=== PATIENT | female | born 1980 | race Caucasian/White ===

== ENCOUNTER 2018-01-19 14:04 | Emergency (ER) | payer OTHER ==
[~2018-01-19] VITALS: Ht 170.2 cm; Wt 94.8 kg
[~2018-01-19 14:04] MED LIST: HYDR-971 PO
--- NOTE | 2018-01-19 14:25 | PHYS DOC ---
Past History Past Medical History: No Pertinent History Past Surgical History: , Tonsillectomy Alcohol Use: None Drug Use: None Adult General Chief Complaint Chief Complaint: BACK PAIN OR INJURY HPI HPI Patient is a 37 YO F WITH CHRONIC BACK PAIN JUST MOVED HERE FROM [place] DID A LOT OF MOVING AND LIFTING , HAD INCREASE IN LOWER BACK PAIN FEELS LIKE BAD B/L MUSCLE SPASM WORSENED BY SITTING IN CAR FOR THE LAST THREE DAYS NO B/B INCONTINENCE NO NEW NUMBNESS SHE HAS OLD PATCHES OF NUMBNESS ON BOTH FEET NO SADDLE ANESTHESIA PAIN RADIATES TO B/L THIGHS AND THEN STOPS ABRUPTLY SHE THINKS THAT IS FROM THE RFA SHE HAS HAD IN THE PAST 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 SHE HAS TRIED OXYCODONE AND FLEXERIL WITH MINIMAL RELIEF. Review of Systems Review of Systems NEG FOR FEVER NEG FOR DYSURIA NEG FOR TRAUMA NEG FOR ABDOMINA PAIN All other systems were reviewed and found to be within normal limits, except as documented in this note. Allergies Allergies Allergies Coded Allergies Type Severity Reaction Last Updated Verified Sulfa (Sulfonamide Antibiotics) Allergy Unknown 01/27/15 No Physical Exam Physical Exam Constitutional: Well developed, well nourished,MILD DISTRESS HENT: Normocephalic, atraumatic, bilateral external ears normal, oropharynx moist, no oral exudates, nose normal. [] Eyes: PERRLA, EOMI, conjunctiva normal, no discharge. [] Neck: Normal range of motion, no tenderness, supple, no stridor. [] NORMAL RESPIRATORY EFFORT NO INCREASED WORK OF BREATHING. Abdomen: Bowel sounds normal, soft, no tenderness, no masses, no pulsatile masses. [] Skin: Warm, dry, no erythema, no rash. [] Back: THERE IS PPALPABLE SPASM RIGHT GREATER THAN ELFT PARASPINOUS Extremities: No tenderness, no cyanosis, no clubbing, ROM intact, no edema. [] Neurologic: Alert and oriented X 3, normal motor function, normal sensory function, no focal deficits noted. [] EXCEPT FOR PATCHY NUMBNES OF FEET AND SHINS WHICH SHE SAYS IS OLD. NO FOOT DROP. Psychologic: Affect normal, judgement normal, mood normal. [] EKG EKG [] Radiology/Procedures Radiology/Procedures [] Course & Med Decision Making Course & Med Decision Making Pertinent Labs and Imaging studies reviewed. (See chart for details) []PROCEDURE NOTE TRIGGER POINT INJECTION VERBAL CONSENT AREA PREPPED WITH ALCOHOL LIDOCAINE 2% INJECTED SUBQ IN AREAS OF MAXIMAL TENDERNESS BOTH RIGHT AND LEFT PARASPINOUS. FOLLOWING PROCEDURE PT NOTED SOME MILD IMPROVEMENT MORE ON THE RIGHT WHERE THE SPASM WAS MORE FOCAL PT is 37-year-old female with history of chronic back pain who is presenting with acute flare I suspect mostly muscle spasm and she agrees trigger point injection was performed as noted above and up her prescription for lidocaine patches as well as Valium just to help her sleep for the next couple of days was given. Return precautions were advised AND SHE HAS F/U FOR MASSAGE AND CHIROPRACTIC THERAPY WHICH HAS HELPED HER BEFORE NO SIGNS OF CAUDA EQUINA BY HX OR PE. Dragon Disclaimer Dragon Disclaimer This electronic medical record was generated, in whole or in part, using a voice recognition dictation system. Departure Departure: Impression: Primary Impression: Back pain Disposition: 01 HOME, SELF-CARE Condition: STABLE Referrals: MELANY TA (PCP) Scripts Diazepam (VALIUM) 5 Mg Tablet 5 MG PO BID, #20 TAB Prov: CÉSAR CONNELL MD 01/19/18 Lidocaine (Lidocaine) 1 Each Adh..patch 1 EACH TP BID, #10 PATCH Prov: CÉSAR CONNELL MD 01/19/18 CÉSAR CONNELL MD Jan 19, 2018 14:25
[2018-01-19] MEDS ORDERED: KETOROLAC 60 MG/2 ML VIAL. IM ONE (14:45)
[2018-01-19] MEDS ORDERED: LIDOCAINE 2% 20 ML VIAL. IJ ONE (14:45)
[2018-01-19] MEDS ORDERED: KETOROLAC 30 MG/ML VIAL. ONE (14:46)
[2018-01-19] MEDS ORDERED: LIDO700A39 TP (14:48)
[2018-01-19] MEDS ORDERED: DIAZ5TAB PO (14:49)
[2018-01-19 15:28] VITALS: BP 108/70
== END 2018-01-19 15:28 | disposition home or self-care (01) ==
LOC: ER 14:04
DX: M54.5 Low back pain (principal); G89.29 Other chronic pain; M79.1 Myalgia; Z88.2 Allergy status to sulfonamides
CPT/HCPCS: 20552; 81025; 96372; 99284; J1885; J2001

== ENCOUNTER → 2018-04-16 | Outpatient (CLI) | payer OTHER ==
[~2018-04-16] MED LIST changes: +DIAZ5TAB PO; +KETOROLAC 30 MG/ML VIAL. IM ONE; +LIDO700A39 TP
== END | disposition home or self-care (01) ==
LOC: SURG 08:30
PROVIDERS: ATTEND Anesthesiology
DX: M47.26 Other spondylosis with radiculopathy, lumbar region (principal)
CPT/HCPCS: 99214; J1885

== ENCOUNTER → 2018-05-07 | Outpatient (CLI) | payer OTHER ==
[~2018-05-07] MED LIST changes: +0.9 % SODIUM CHLORIDE 10 ML VIAL ONE; +DEXAMETHASONE SOD PHOS 4 MG/ML VIAL ONE; +IOHEXOL 300 MG/ML 50 ML VIAL. ONE; -KETOROLAC 30 MG/ML VIAL. IM ONE; +LIDOCAINE 1% PF 2 ML VIAL. ONE
== END | disposition home or self-care (01) ==
LOC: SURG 09:10
PROVIDERS: ATTEND Anesthesiology
DX: M54.16 Radiculopathy, lumbar region (principal); Z88.2 Allergy status to sulfonamides; Z79.899 Other long term (current) drug therapy; Z98.890 Other specified postprocedural states
CPT/HCPCS: 62323; J1100; Q9967

== ENCOUNTER → 2018-05-28 | Outpatient (CLI) | payer OTHER ==
[~2018-05-28] MED LIST changes: -0.9 % SODIUM CHLORIDE 10 ML VIAL ONE; -DEXAMETHASONE SOD PHOS 4 MG/ML VIAL ONE; -IOHEXOL 300 MG/ML 50 ML VIAL. ONE; -LIDOCAINE 1% PF 2 ML VIAL. ONE
== END | disposition home or self-care (01) ==
LOC: SURG 09:58
PROVIDERS: ATTEND Anesthesiology
DX: M47.817 Spondylosis without myelopathy or radiculopathy, lumbosacral region (principal); Z88.1 Allergy status to other antibiotic agents
CPT/HCPCS: 99214

== ENCOUNTER 2019-04-22 08:54 | Emergency (ER) | payer OTHER ==
[~2019-04-22] VITALS: Ht 170.2 cm; Wt 93.1 kg
[2019-04-22 08:54] VITALS: BP 128/87
[~2019-04-22 08:54] MED LIST changes: +HYDR-3165 PO; -HYDR-971 PO; +LIDO700A21 TP; -LIDO700A39 TP
[2019-04-22] MEDS ORDERED: DEXAMETHASONE 4 MG TABLET PO ONE (10:45)
[2019-04-22] MEDS ORDERED: DEXAMETHASONE SOD PHOS 10 MG/ML VIAL PO ONE (10:45)
[2019-04-22] MEDS ORDERED: KETOROLAC 60 MG/2 ML VIAL. IM ONE (10:45)
--- NOTE | 2019-04-22 10:59 | PHYS DOC ---
Past History Past Medical History: Hypertension, Other Past Surgical History: , Other Alcohol Use: None Drug Use: None Adult General Chief Complaint Chief Complaint: BACK PAIN OR INJURY HPI HPI 38-year-old female presents to the emergency Department with complaints of back pain. Patient initial back injury in 2009, she has degenerative disc changes at L5 and S1. She states she's developed muscle cramping and pain on without acute injury. She describes numbness and tingling down her left leg. She denies any bowel or bladder dysfunction. Patient declined rectal exam on evaluation. Review of Systems Review of Systems Constitutional: Denies fever or chills [] Respiratory: Denies cough or shortness of breath [] Cardiovascular: No additional information not addressed in HPI [] GI: Denies abdominal pain, nausea, vomiting, bloody stools or diarrhea [] : She denies any bowel or bladder dysfunction Musculoskeletal: Back pain, low with numbness tingling down her left leg Neurologic: Denies headache, focal weakness or sensory changes [] All other systems were reviewed and found to be within normal limits, except as documented in this note. Current Medications Current Medications Current Medications Medications (Trade) Dose Ordered Sig/[facility] Start Time Stop Time Status Last Admin Dose Admin Dexamethasone (Decadron) 10 mg 1X ONCE 04/22/19 10:45 04/22/19 10:46 DC 04/22/19 10:38 10 MG Dexamethasone Sodium Phosphate (Decadron) 10 mg 1X ONCE 04/22/19 10:45 04/22/19 10:28 DC Ketorolac Tromethamine (Toradol Im) 60 mg 1X ONCE 04/22/19 10:45 04/22/19 10:46 DC 04/22/19 10:38 60 MG Allergies Allergies Allergies Coded Allergies Type Severity Reaction Last Updated Verified Sulfa (Sulfonamide Antibiotics) Allergy Unknown 01/27/15 No Physical Exam Physical Exam Constitutional: Well developed, well nourished, mild distress secondary to pain, patient is tearful HENT: Normocephalic, atraumatic, bilateral external ears normal, oropharynx moist, no oral exudates, nose normal. [] Eyes: PERRLA, EOMI, conjunctiva normal, no discharge. [] Neck: Normal range of motion, no tenderness, supple, no stridor. [] Cardiovascular:Heart rate regular rhythm, no murmur [] Lungs & Thorax: Bilateral breath sounds clear to auscultation [] Abdomen: Bowel sounds normal, soft, no tenderness, no masses, no pulsatile masses. [] Skin: Warm, dry, no erythema, no rash. [] Back: Tender to palpation along the lumbar, sacral area, mild positive straight leg raise Extremities: No tenderness, no cyanosis, no clubbing, limited range of motion secondary to pain no edema. [] Neurologic: Alert and oriented X 3, normal motor function, normal sensory function, no focal deficits noted. [] Psychologic: Affect normal, judgement normal, mood normal. [] As of note, patient declined rectal exam Current Patient Data Vital Signs Vital Signs Date Time Temp Pulse Resp B/P (MAP) Pulse Ox O2 Delivery O2 Flow Rate FiO2 04/22/19 08:54 98.1 90 18 128/87 (101) 99 Room Air EKG EKG [] Radiology/Procedures Radiology/Procedures [address] [address] IMAGING REPORT Signed PATIENT: HOLLAND REID ACCOUNT: [id number] : 1980 LOCATION: ER AGE: 38 SEX: F EXAM STATUS: REG ER ORD. PHYSICIAN: DENZEL KIMBALL MD REASON: Back pain, worsening, radiation down left leg PROCEDURE: CT LUMBAR SPINE WO CONTRAST CT LUMBAR SPINE WO CONTRAST Indication: Worsening low back pain into left leg Technique: Noncontrast CT imaging was performed of the lumbar spine, multiplanar reconstruction images submitted. One or more of the following individualized dose reduction techniques were utilized for this examination: 1. Automated exposure control 2. Adjustment of the mA and/or kV according to patient size 3. Use of iterative reconstruction technique. Comparison: April 25, 2018 MRI lumbar spine exam Findings: There is again transitional anatomy. Assuming 5 lumbar type vertebral bodies and 12 ribs which are not fully included, most inferior fully formed intervertebral disc space is considered L5-S1. There is mild to moderate L5-S1 degenerative disc disease with associated vacuum phenomenon. Intervertebral disc spaces at other levels are overall maintained. No acute lumbar spine fracture is identified. There is unfused apophysis on the left at L1. There is multilevel lumbar facet degenerative change greater inferiorly. There is disc osteophyte complex at L5-S1 more eccentric to the left lateral recess with contact of the descending left S1 nerve root as seen previously. There is mild narrowing of the left L5-S1 neural foramen by disc osteophyte complex and facet. There is hepatic steatosis. There is mild lumbar levoscoliosis. IMPRESSION: 1. There is transitional anatomy, most inferior fully formed intervertebral disc space considered L5-S1 at which there is mild to moderate degenerative disc disease. There is disc osteophyte complex in the left lateral recess at L5-S1 with contact of the descending left S1 nerve root as seen previously. There is mild narrowing of the left L5-S1 neural foramen. 2. There is hepatic steatosis. Electronically signed by: Isidoro Taylor MD (04/22/2019 11:41 AM) [id number] DICTATED AND SIGNED BY: ISIDORO TAYLOR MD DATE: 04/22/19 1141 CC: DENZEL KIMBALL MD; MELANY TA ~ [] Course & Med Decision Making Course & Med Decision Making Pertinent Labs and Imaging studies reviewed. (See chart for details) Patient presents with complaints of back pain and acute on chronic. CT of lumbar/sacral spine performed with no acute changes from previous comparisons. Patient declined rectal exam. Toradol IM, Decadron provided. Patient continued on Decadron taper as an outpatient, Flexeril and tramadol provided. Return precautions discussed with patient Cecilia Disclaimer Dragon Disclaimer This electronic medical record was generated, in whole or in part, using a voice recognition dictation system. Departure Departure: Impression: Primary Impression: Radiculopathy Disposition: 01 HOME, SELF-CARE Condition: STABLE Referrals: MELANY TA (PCP) Patient Instructions: Lumbosacral Radiculopathy Scripts Dexamethasone (Decadron) 4 Mg Tablet 4 MG PO DAILY for PAIN, #5 TAB 4 mg po daily x 3 days, 1/2 tab po daily x 3 days Prov: DENZEL KIMBALL MD 04/22/19 Tramadol Hcl (TRAMADOL HCL) 50 Mg Tablet 50 MG PO PRN Q6HRS PRN for PAIN, #30 TAB Prov: DENZEL KIMBALL MD 04/22/19 Cyclobenzaprine Hcl (CYCLOBENZAPRINE HCL) 5 Mg Tablet 1 TAB PO TID for muscle spasm, #60 TAB Prov: DENZEL KIMBALL MD 04/22/19 Problem Qualifiers Primary Impression: Radiculopathy Spinal region: lumbosacral Qualified Codes: M54.17 - Radiculopathy, lumbosacral region DENZEL KIMBALL MD Apr 22, 2019 10:59
--- NOTE | 2019-04-22 11:44 | RAD ---
CT LUMBAR SPINE WO CONTRAST Indication: Worsening low back pain into left leg Technique: Noncontrast CT imaging was performed of the lumbar spine, multiplanar reconstruction images submitted. One or more of the following individualized dose reduction techniques were utilized for this examination: 1. Automated exposure control 2. Adjustment of the mA and/or kV according to patient size 3. Use of iterative reconstruction technique. Comparison: April 25, 2018 MRI lumbar spine exam Findings: There is again transitional anatomy. Assuming 5 lumbar type vertebral bodies and 12 ribs which are not fully included, most inferior fully formed intervertebral disc space is considered L5-S1. There is mild to moderate L5-S1 degenerative disc disease with associated vacuum phenomenon. Intervertebral disc spaces at other levels are overall maintained. No acute lumbar spine fracture is identified. There is unfused apophysis on the left at L1. There is multilevel lumbar facet degenerative change greater inferiorly. There is disc osteophyte complex at L5-S1 more eccentric to the left lateral recess with contact of the descending left S1 nerve root as seen previously. There is mild narrowing of the left L5-S1 neural foramen by disc osteophyte complex and facet. There is hepatic steatosis. There is mild lumbar levoscoliosis. IMPRESSION: 1. There is transitional anatomy, most inferior fully formed intervertebral disc space considered L5-S1 at which there is mild to moderate degenerative disc disease. There is disc osteophyte complex in the left lateral recess at L5-S1 with contact of the descending left S1 nerve root as seen previously. There is mild narrowing of the left L5-S1 neural foramen. 2. There is hepatic steatosis. Electronically signed by: Jack Cavanaugh MD (04/22/2019 11:41 AM) [facility]
[2019-04-22] MEDS ORDERED: CYCL5TAB PO (12:01)
[2019-04-22] MEDS ORDERED: TRAM50TA PO (12:02)
[2019-04-22] MEDS ORDERED: DEXA4TAB63 PO (12:04)
== END 2019-04-22 12:05 | disposition home or self-care (01) ==
LOC: ER 08:54
DX: M54.17 Radiculopathy, lumbosacral region (principal); I10 Essential (primary) hypertension; Z88.2 Allergy status to sulfonamides
CPT/HCPCS: 72131; 96372; 99284; J1885; J8540

== ENCOUNTER → 2019-05-06 | Outpatient (CLI) | payer OTHER ==
[~2019-05-06] MED LIST changes: +CYCL5TAB PO; +DEXA4TAB63 PO; +TRAM50TA PO
[2019-05-06 10:38] VITALS: BP 102/73
== END | disposition home or self-care (01) ==
LOC: SURG 09:17
PROVIDERS: ATTEND Anesthesiology
DX: M54.16 Radiculopathy, lumbar region (principal); M51.36 Other intervertebral disc degeneration, lumbar region; M79.605 Pain in left leg; M79.604 Pain in right leg
CPT/HCPCS: 99214

== ENCOUNTER → 2019-06-12 | Outpatient (CLI) | payer OTHER ==
[~2019-06-12] MED LIST changes: +0.9 % SODIUM CHLORIDE 10 ML VIAL ONE; +IBUP800T19 PO; +IOHEXOL 300 MG/ML 50 ML VIAL. ONE; +LIDOCAINE 1% PF 30 ML VIAL. ONE; +METO-239 PO; +birth control; +methylPREDNISolone ACETATE 80 MG/ML VIAL. ONE
[2019-06-12 14:26] VITALS: BP 121/90
== END ==
LOC: SURG 12:16
PROVIDERS: ATTEND Anesthesiology Pain Medicine
DX: M54.16 Radiculopathy, lumbar region (principal); Z88.1 Allergy status to other antibiotic agents; Z88.8 Allergy status to other drugs, medicaments and biological substances
CPT/HCPCS: 62323; J1040; J2001; Q9967

== ENCOUNTER 2019-09-10 18:07 | Emergency (ER) | payer OTHER ==
[~2019-09-10] VITALS: Ht 170.2 cm; Wt 93.1 kg
[~2019-09-10 18:07] MED LIST changes: -0.9 % SODIUM CHLORIDE 10 ML VIAL ONE; -IOHEXOL 300 MG/ML 50 ML VIAL. ONE; -LIDOCAINE 1% PF 30 ML VIAL. ONE; -methylPREDNISolone ACETATE 80 MG/ML VIAL. ONE
[2019-09-10] MEDS ORDERED: IV NORMAL SALINE 1,000ML 1,000 ML IV SCH (18:20)
--- NOTE | 2019-09-10 18:27 | PHYS DOC ---
Past History Past Medical History: Hypertension, Other Past Surgical History: , Other Alcohol Use: None Drug Use: None Adult General Chief Complaint Chief Complaint: ABDOMINAL PAIN HPI HPI Patient is a 39-year-old female who presents with complaint of left upper abdominal pain that started 3 days ago. Patient states that it feels like a red hot poker sticking her in the abdomen. She states that it does radiate into her back. She rates pain at a 7 out of 10. She reports nausea but has not vomited. Patient states that nothing improves the pain. She states pain is worsened with palpation.[] Review of Systems Review of Systems Constitutional: Denies fever or chills [] Respiratory: Denies cough or shortness of breath [] Cardiovascular: No additional information not addressed in HPI [] GI: Complains of abdominal pain with nausea. Denies vomiting or diarrhea [] Musculoskeletal: Complains of mid back pain [] Integument: Denies rash or skin lesions [] Neurologic: Denies headache, focal weakness or sensory changes [] All other systems were reviewed and found to be within normal limits, except as documented in this note. Allergies Allergies Allergies Coded Allergies Type Severity Reaction Last Updated Verified Sulfa (Sulfonamide Antibiotics) Allergy Unknown 06/12/19 No Physical Exam Physical Exam Constitutional: Well developed, well nourished, no acute distress, non-toxic appearance. [] HENT: Normocephalic, atraumatic, bilateral external ears normal, oropharynx moist, no oral exudates, nose normal. [] Eyes: PERRLA, EOMI, conjunctiva normal, no discharge. [] Neck: Normal range of motion, no tenderness, supple, no stridor. [] Cardiovascular: Regular rate and rhythm[] Lungs & Thorax: Bilateral breath sounds clear to auscultation [] Abdomen: Bowel sounds normal, soft, with moderate left upper quadrant tenderness. [] Skin: Warm, dry, no erythema, no rash. [] Extremities: No tenderness, no cyanosis, no clubbing, ROM intact. [] Neurologic: Alert and oriented X 3, no focal deficits noted. [] Current Patient Data Vital Signs Vital Signs Date Time Temp Pulse Resp B/P (MAP) Pulse Ox O2 Delivery O2 Flow Rate FiO2 09/10/19 18:17 97.8 102 16 155/90 (111) 96 Room Air EKG EKG [] Radiology/Procedures Radiology/Procedures [] Impressions: PROCEDURE: CT ABD PELV W/ IV CONTRST ONLY Examination: CT of abdomen pelvis with IV contrast HISTORY: History of left-sided abdominal pain, nausea, vomiting COMPARISON: None available TECHNIQUE: Axial CT images of the abdomen pelvis were performed with IV contrast. Coronal and sagittal reformats are performed Exposure: One or more of the following individualized dose reduction techniques were utilized for this examination: 1. Automated exposure control 2. Adjustment of the mA and/or kV according to patient size 3. Use of iterative reconstruction technique FINDINGS: The bibasilar lungs are clear. No evidence of free air identified in the abdomen. Diffuse decreased attenuation noted throughout the liver likely hepatic steatosis. The spleen, adrenals grossly appears unremarkable. Gallbladder is mildly distended. The stomach is mildly distended. There is a 9 mm hypodensity identified in the head of the pancreas. The small bowel is nondilated. The appendix is normal. Feces and gas noted in the colon. Urinary bladder is mildly distended. Bilateral kidneys enhance symmetrically. The caliber of the aorta grossly appears unremarkable. No evidence of lytic bony destructive lesion. IMPRESSION: 1. No acute intra-abdominal findings. 2. A 9 mm hypodensity identified in the head of the pancreas. Consider follow-up nonemergent MRI for better evaluation. 3. Hepatic steatosis. Electronically signed by: Servando Fallon MD (09/10/2019 8:03 PM) [facility] Course & Med Decision Making Course & Med Decision Making Pertinent Labs and Imaging studies reviewed. (See chart for details) [] Dragon Disclaimer Dragon Disclaimer This electronic medical record was generated, in whole or in part, using a voice recognition dictation system. Departure Departure: Impression: Primary Impression: Left upper quadrant abdominal pain of unknown etiology Disposition: HOME, SELF-CARE Condition: STABLE Referrals: MELANY TA (PCP) Patient Instructions: Abdominal Pain Scripts Acetaminophen With Codeine (TYLENOL WITH CODEINE #3 TABLET) 1 Each Tablet 1 TAB PO PRN Q6HRS PRN for pain MDD 4 Tablet(s), #12 TAB 0 Refills Prov: ÁNGELA MELENDEZ Jr. DO 09/10/19 Ondansetron (ONDANSETRON ODT) 4 Mg Tab.rapdis 1 TAB PO PRN Q6-8HRS PRN for NAUSEA, #12 TAB Prov: ÁNGELA MELENDEZ Jr. DO 09/10/19 ÁNGELA MELENDEZ Jr. DO Sep 10, 2019 18:27
[2019-09-10] MEDS ORDERED: ONDANSETRON PF 4 MG/2 ML VIAL. IVP ONE (18:30)
[2019-09-10 18:48] LABS: BASO # 0.1 x10^3/uL (0.0-0.2); BASO % 1 % (0-3); EOS # 0.3 x10^3/uL (0.0-0.7); EOS % 3 % (0-3); HEMATOCRIT 43.3 % (36.0-47.0); HEMOGLOBIN 14.5 g/dL (12.0-15.5); LYMPH # 3.8 x10^3/uL (1.0-4.8); LYMPH % 41 % (24-48); MEAN CORPUSCULAR HEMOGLOBIN 30 pg (25-35); MEAN CORPUSCULAR HGB CONC 34 g/dL (31-37); MEAN CORPUSCULAR VOLUME 88 fL (79-100); MONO # 0.7 x10^3/uL (0.0-1.1); MONO % 8 % (0-9); NEUT # 4.3 x10^3uL (1.8-7.7); NEUT % 47 % (31-73); PLATELET COUNT 311 x10^3/uL (140-400); RED BLOOD COUNT 4.91 x10^6/uL (3.50-5.40); RED CELL DISTRIBUTION WIDTH 12.3 % (11.5-14.5); WHITE BLOOD COUNT 9.1 x10^3/uL (4.0-11.0)
[2019-09-10 18:54] LABS: CALCIUM 8.9 mg/dL (8.5-10.1); CREATININE 0.9 mg/dL (0.6-1.0); GFR 69.3
[2019-09-10 18:58] LABS: ALBUMIN/GLOBULIN RATIO 1.2 (1.0-1.7); TOTAL BILIRUBIN 0.3 mg/dL (0.2-1.0); TOTAL PROTEIN 7.4 g/dL (6.4-8.2)
[2019-09-10 19:27] LABS: BACTERIA,URINE MANY /HPF (0-FEW); BILIRUBIN,URINE NEG (NEG); CLARITY,URINE CLOUDY; COLOR,URINE YELLOW; GLUCOSE,URINE NEG (NEG); NITRITE,URINE NEG (NEG); RBC,URINE 0 /HPF (0-2); SQUAMOUS EPITHELIAL CELL,UR MANY /LPF; UROBILINOGEN,URINE 0.2 mg/dL (0.2 mg/dL)
[2019-09-10] MEDS ORDERED: IOHEXOL 300 MG/ML 75 ML VIAL. IV ONE (19:30)
[2019-09-10 19:43] VITALS: BP 142/87
--- NOTE | 2019-09-10 20:06 | RAD ---
Examination: CT of abdomen pelvis with IV contrast HISTORY: History of left-sided abdominal pain, nausea, vomiting COMPARISON: None available TECHNIQUE: Axial CT images of the abdomen pelvis were performed with IV contrast. Coronal and sagittal reformats are performed Exposure: One or more of the following individualized dose reduction techniques were utilized for this examination: 1. Automated exposure control 2. Adjustment of the mA and/or kV according to patient size 3. Use of iterative reconstruction technique FINDINGS: The bibasilar lungs are clear. No evidence of free air identified in the abdomen. Diffuse decreased attenuation noted throughout the liver likely hepatic steatosis. The spleen, adrenals grossly appears unremarkable. Gallbladder is mildly distended. The stomach is mildly distended. There is a 9 mm hypodensity identified in the head of the pancreas. The small bowel is nondilated. The appendix is normal. Feces and gas noted in the colon. Urinary bladder is mildly distended. Bilateral kidneys enhance symmetrically. The caliber of the aorta grossly appears unremarkable. No evidence of lytic bony destructive lesion. IMPRESSION: 1. No acute intra-abdominal findings. 2. A 9 mm hypodensity identified in the head of the pancreas. Consider follow-up nonemergent MRI for better evaluation. 3. Hepatic steatosis. Electronically signed by: Servando Fallon MD (09/10/2019 8:03 PM) [facility]
[2019-09-10] MEDS ORDERED: ONDA4TAB12 PO (20:20)
[2019-09-10] MEDS ORDERED: ACET-704 PO (20:20)
== END 2019-09-10 20:45 | disposition home or self-care (01) ==
LOC: ER 18:07
DX: R10.12 Left upper quadrant pain (principal); M54.6 Pain in thoracic spine; R11.0 Nausea; I10 Essential (primary) hypertension; Z98.890 Other specified postprocedural states
CPT/HCPCS: 36415; 74177; 80053; 81001; 81025; 83690; 85025; 87086; 96374; 96375; 99285; J2405; J3010; Q9967; J7030

== ENCOUNTER → 2019-10-10 | Outpatient (CLI) | payer OTHER ==
[~2019-10-10] MED LIST changes: +ACET-704 PO; +ONDA4TAB12 PO
[2019-10-10 14:08] VITALS: BP 133/89
== END | disposition home or self-care (01) ==
LOC: SURG 13:57
PROVIDERS: ATTEND Anesthesiology Pain Medicine
DX: G89.4 Chronic pain syndrome (principal); M54.16 Radiculopathy, lumbar region; M25.559 Pain in unspecified hip; F11.90 Opioid use, unspecified, uncomplicated
CPT/HCPCS: 99214; G0463

== ENCOUNTER → 2020-03-24 | Outpatient (CLI) | payer OTHER ==
[~2020-03-24] MED LIST changes: +BUPIVACAINE MPF 0.25% 10 ML VIAL. ONE; +ETHI1TAB12 PO; +IBUP400T18 PO; +LIDOCAINE 1% PF 30 ML VIAL. ONE; +PANT40TA6 PO
[2020-03-24 12:56] VITALS: BP 122/93
== END | disposition home or self-care (01) ==
LOC: SURG 10:46
PROVIDERS: ATTEND Anesthesiology
DX: M47.816 Spondylosis without myelopathy or radiculopathy, lumbar region (principal); M54.5 Low back pain; Z88.1 Allergy status to other antibiotic agents; Z98.890 Other specified postprocedural states; Z79.899 Other long term (current) drug therapy
CPT/HCPCS: 64493; 64494; 64495; J2001; J3490

== ENCOUNTER → 2020-04-07 | Outpatient (CLI) | payer OTHER ==
[2020-04-07 15:02] VITALS: BP 125/92
== END | disposition home or self-care (01) ==
LOC: SURG 14:18
PROVIDERS: ATTEND Anesthesiology
DX: M47.816 Spondylosis without myelopathy or radiculopathy, lumbar region (principal); I10 Essential (primary) hypertension; M51.36 Other intervertebral disc degeneration, lumbar region; Z88.2 Allergy status to sulfonamides; Z79.899 Other long term (current) drug therapy
CPT/HCPCS: 64493; 64494; J2001; J3490

== ENCOUNTER → 2020-04-09 | Outpatient (CLI) | payer OTHER ==
[2020-04-07 15:02] VITALS: BP 125/92
[~2020-04-09] MED LIST changes: -BUPIVACAINE MPF 0.25% 10 ML VIAL. ONE; -ETHI1TAB12 PO; -IBUP400T18 PO; -LIDOCAINE 1% PF 30 ML VIAL. ONE; -PANT40TA6 PO
== END ==
LOC: LAB 13:40
PROVIDERS: ATTEND Registered Nurse
DX: Z20.828 Contact with and (suspected) exposure to other viral communicable diseases (principal)
CPT/HCPCS: U0003-CS

== ENCOUNTER → 2020-04-14 | Day surgery (SDC) | payer OTHER ==
[~2020-04-14] MED LIST changes: +BUPIVACAINE MPF 0.25% 10 ML VIAL. ONE; +DEXAMETHASONE SOD PHOS 4 MG/ML VIAL. ONE; +ETHI1TAB12 PO; +IBUP400T18 PO; +LIDOCAINE 1% PF 30 ML VIAL. ONE; +MIDAZOLAM HCL PF 2 MG/2 ML VIAL. ONE; +PANT40TA6 PO
[2020-04-14 11:17] VITALS: BP 108/69
== END | disposition home or self-care (01) ==
LOC: SURG 09:33
PROVIDERS: ATTEND Anesthesiology
DX: M47.816 Spondylosis without myelopathy or radiculopathy, lumbar region (principal); M47.817 Spondylosis without myelopathy or radiculopathy, lumbosacral region; Z88.8 Allergy status to other drugs, medicaments and biological substances; Z79.899 Other long term (current) drug therapy; Z98.890 Other specified postprocedural states
CPT/HCPCS: 64635; 64636; 99152; 99153; J1100; J2001; J2250; J3010; J3490

== ENCOUNTER → 2020-04-30 | Outpatient (CLI) | payer OTHER ==
[2020-04-07 15:02] VITALS: BP 125/92
[~2020-04-30] MED LIST changes: -BUPIVACAINE MPF 0.25% 10 ML VIAL. ONE; -DEXAMETHASONE SOD PHOS 4 MG/ML VIAL. ONE; -LIDOCAINE 1% PF 30 ML VIAL. ONE; -MIDAZOLAM HCL PF 2 MG/2 ML VIAL. ONE
== END ==
LOC: LAB 07:22
PROVIDERS: ATTEND Nurse Anesthetist, Certified Registered
DX: Z01.812 Encounter for preprocedural laboratory examination (principal); R52 Pain, unspecified; Z20.828 Contact with and (suspected) exposure to other viral communicable diseases
CPT/HCPCS: U0003-CS

== ENCOUNTER → 2020-05-05 | Day surgery (SDC) | payer OTHER ==
[~2020-05-05] MED LIST changes: +BUPIVACAINE MPF 0.25% 10 ML VIAL. ONE; +DEXAMETHASONE SOD PHOS 4 MG/ML VIAL. ONE; +LIDOCAINE 1% PF 30 ML VIAL. ONE; +MIDAZOLAM HCL PF 2 MG/2 ML VIAL. ONE
[2020-05-05 09:46] VITALS: BP 104/57
== END | disposition home or self-care (01) ==
LOC: SURG 07:33
PROVIDERS: ATTEND Anesthesiology
DX: M47.816 Spondylosis without myelopathy or radiculopathy, lumbar region (principal); I10 Essential (primary) hypertension; Z88.2 Allergy status to sulfonamides; Z79.899 Other long term (current) drug therapy
CPT/HCPCS: 64635; 64636; 99152; 99153; J1100; J2001; J2250; J3010; J3490

== ENCOUNTER 2020-05-19 17:19 | Emergency (ER) | payer OTHER ==
[~2020-05-19] VITALS: Ht 170.2 cm; Wt 95.4 kg
[~2020-05-19 17:19] MED LIST changes: -BUPIVACAINE MPF 0.25% 10 ML VIAL. ONE; -DEXAMETHASONE SOD PHOS 4 MG/ML VIAL. ONE; -LIDOCAINE 1% PF 30 ML VIAL. ONE; -MIDAZOLAM HCL PF 2 MG/2 ML VIAL. ONE
[2020-05-19 18:22] VITALS: BP 154/97
--- NOTE | 2020-05-19 18:44 | PHYS DOC ---
Past History Past Medical History: Hypertension, Other Past Surgical History: , Other Smoking: Non-smoker Alcohol Use: None Drug Use: None General Adult EDM: Chief Complaint: LOWEREXTREMITY INJURY HPI: HPI: Patient is a 39-year-old female who presents to the emergency room with right knee pain that started around 3 PM today. Patient states that she was walking down the stairs when she felt an intense pain in her right knee when she was midway down. 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 She had mild pain at the time which went away over time. Her pain today is worse when she walks down the stairs or when she sits down. She has not tried taking any medication for the pain. She denies any numbness, tingling, swelling, or redness in her legs bilaterally. She denies any CP, cough, SOB or fevers. Review of Systems: Review of Systems: Constitutional: Denies fever or chills Eyes: Denies redness or eye pain HENT: Denies nasal congestion or sore throat Respiratory: Denies cough or shortness of breath Cardiovascular: Denies chest pain or palpitations GI: Denies abdominal pain, nausea, or vomiting : Denies dysuria or hematuria Musculoskeletal: Reports lower back pain and right knee pain Integument: Denies rash or skin lesions Neurologic: Denies headache, focal weakness or sensory changes Complete systems were reviewed and found to be within normal limits, except as documented in this note. Heart Score: Risk Factors: Risk Factors: DM, Current or recent (<one month) smoker, HTN, HLP, family history of CAD, obesity. Risk Scores: Score 0 - 3: 2.5% MACE over next 6 weeks - Discharge Home Score 4 - 6: 20.3% MACE over next 6 weeks - Admit for Clinical Observation Score 7 - 10: 72.7% MACE over next 6 weeks - Early Invasive Strategies Allergies: Allergies: Allergies Coded Allergies Type Severity Reaction Last Updated Verified Sulfa (Sulfonamide Antibiotics) Allergy Intermediate 05/07/20 No Physical Exam: PE: Constitutional: Well developed, well nourished, no acute distress, non-toxic appearance HENT: Normocephalic, atraumatic Eyes: PERRL, EOMI, conjunctiva normal, no discharge Neck: Normal range of motion, no tenderness, supple Lungs & Thorax: No respiratory distress, equal chest rise and fall Abdomen: Soft, no tenderness Skin: Warm, dry, no erythema, no rash Back: No tenderness, no CVA tenderness Extremities: Mild tenderness to palpation superior to the patella of the right knee, ROM intact, no edema or erythema, negative anterior and posterior drawer sign and no laxity with valgus or varus stress of right knee Neurologic: Alert and oriented X 3, normal motor function, normal sensory function, no focal deficits noted Psychologic: Affect normal, judgment normal Current Patient Data: Vital Signs: Vital Signs Date Time Temp Pulse Resp B/P (MAP) Pulse Ox O2 Delivery O2 Flow Rate FiO2 05/19/20 18:22 97.3 98 16 154/97 (116) 95 Room Air Radiology/Procedures: Radiology/Procedures: PROCEDURE: KNEE RIGHT 3V Exam: Right knee 3 views INDICATION: Severe pain TECHNIQUE: Frontal, lateral and oblique views of the right knee Comparisons: None FINDINGS: Bone mineralization is normal. No acute or healed fractures. Soft tissues are unremarkable. Joint spaces are well-maintained. IMPRESSION: No acute osseous abnormality. Electronically signed by: Tom Singh MD (05/19/2020 6:44 PM) [facility] DICTATED AND SIGNED BY: TOM SINGH MD DATE: 05/19/201843 Course & Med Decision Making: Course & Med Decision Making Pertinent Labs and Imaging studies reviewed. (See chart for details) Patient is a 39-year-old female who presents the emergency room with right knee pain. Patient is ambulatory at this time and denies any pain with bearing weight on her right leg. X-rays were taken of the right knee which revealed no acute fractures. I suspect that she may have had a mild meniscal or ligament tear for which I will have her follow-up with Ortho. Patient denied requiring any pain medications for home. Patient stable for discharge with outpatient follow-up with PCP/orthopedic surgery. Discussed findings and plan with patient, who acknowledges understanding and agreement. Cecilia Disclaimer: Cecilia Disclaimer: This electronic medical record was generated, in whole or in part, using a voice recognition dictation system. Departure Departure: Impression: Primary Impression: Knee pain, acute Qualified Codes: M25.561 - Pain in right knee Disposition: HOME/RESIDENCE PRIOR TO ADM Condition: STABLE Referrals: MELANY TA (PCP) VIKAS HART MD Patient Instructions: Knee Pain, [id number], Knee Wraps (Elastic Bandage) and RICE Additional Instructions: Use over the counter Tylenol and/or Ibuprofen for pain or discomfort. ICE area of discomfort 20 min on then leave off for next 20 mins. Repeat several times daily as needed for next few days. ANTONETTE GAMEZ DO May 19, 2020 18:44
--- NOTE | 2020-05-19 18:48 | RAD ---
Exam: Right knee 3 views INDICATION: Severe pain TECHNIQUE: Frontal, lateral and oblique views of the right knee Comparisons: None FINDINGS: Bone mineralization is normal. No acute or healed fractures. Soft tissues are unremarkable. Joint spaces are well-maintained. IMPRESSION: No acute osseous abnormality. Electronically signed by: Tom Mata MD (05/19/2020 6:44 PM) [facility]
== END 2020-05-19 18:46 | disposition home or self-care (01) ==
LOC: ER 17:19
DX: M25.561 Pain in right knee (principal); M54.5 Low back pain; I10 Essential (primary) hypertension; Z88.2 Allergy status to sulfonamides
CPT/HCPCS: 73562; 99283

== ENCOUNTER 2020-10-06 21:40 | Emergency (ER) | payer OTHER ==
[~2020-10-06] VITALS: Ht 170.2 cm; Wt 95.4 kg
[~2020-10-06 21:40] MED LIST changes: -0.9 % SODIUM CHLORIDE 10 ML VIAL. ONE; -DEXAMETHASONE SOD PHOS 10 MG/ML VIAL. ONE; -IOHEXOL 300 MG/ML 50 ML VIAL. ONE; -LIDOCAINE 1% PF 30 ML VIAL. ONE
[2020-10-06] MEDS ORDERED: IV RINGERS SOLUTION,LACTATED 1,000 ML IV ONE (22:30)
--- NOTE | 2020-10-06 22:36 | PHYS DOC ---
Past History Past Medical History: Hypertension, Other Additional Past Medical Histor: back pain, fatty liver Past Surgical History: , Other Additional Past Surgical Histo: nerve burning, hip surgery Smoking: Non-smoker Alcohol Use: None Drug Use: None Adult General Chief Complaint Chief Complaint: HYPERGLYCEMIA HPI HPI Patient is a 40-year-old female with a past medical history significant for gestational diabetes which resolved, hypertension on metoprolol, and chronic back pain who presents with a chief complaint of hyperglycemia. States she saw her pain specialist this morning had a steroid injection in her back. States while at home she felt like she had a hot flash and checked her blood sugar. States she had the monitor strips leftover from her . States that at home it was greater than 400. Denies any history of diabetes or insulin use. Denies headache, changes in vision, chest pain, shortness of breath, abdominal pain, nausea, vomiting, dysuria, hematuria or blood in the stool. States that she did have urinary frequency today, peeing more than she usually does and feels thirsty. Denies any recent travel, known ill contacts, Covid/flu symptoms. States that she did eat some ice cream a couple hours before coming to the emergency department. Review of Systems Review of Systems Review of systems otherwise unremarkable except noted in HPI Current Medications Current Medications Current Medications Medications (Trade) Dose Ordered Sig/Woo Start Time Stop Time Status Last Admin Dose Admin Lactated Ringer's 1,000 ml @ 1,000 mls/hr 1X ONCE 10/06/20 22:30 10/06/20 23:29 Allergies Allergies Allergies Coded Allergies Type Severity Reaction Last Updated Verified Sulfa (Sulfonamide Antibiotics) Allergy Intermediate 10/06/20 No Physical Exam Physical Exam Constitutional: Well developed, well nourished, no acute distress, non-toxic appearance. [] HENT: Normocephalic, atraumatic, bilateral external ears normal, oropharynx moist, no oral exudates, nose normal. [] Eyes: conjunctiva normal, no discharge. [] Neck: Normal range of motion, no tenderness, supple, no stridor. [] Cardiovascular: Tachycardia, regular rhythm Lungs & Thorax: Bilateral breath sounds clear to auscultation [] Abdomen: soft, no tenderness, no masses, no pulsatile masses. [] Skin: Warm, dry, no erythema, no rash. [] Back: No tenderness, Extremities: No tenderness, no cyanosis, no clubbing, ROM intact, no edema. [] Neurologic: Alert and oriented X 3, normal motor function, normal sensory function, no focal deficits noted. [] Psychologic: Affect normal, judgement normal, mood normal. [] Current Patient Data Vital Signs Vital Signs Date Time Temp Pulse Resp B/P (MAP) Pulse Ox O2 Delivery O2 Flow Rate FiO2 10/06/20 21:57 98.0 114 18 125/89 (101) 96 Room Air EKG EKG [] Radiology/Procedures Radiology/Procedures [] Heart Score Risk Factors: Risk Factors: DM, Current or recent (<one month) smoker, HTN, HLP, family history of CAD, obesity. Risk Scores: Risk Factors: DM, Current or recent (<one month) smoker, HTN, HLP, family history of CAD, obesity. Course & Med Decision Making Course & Med Decision Making Patient is a 40-year-old female presents with a chief complaint of hyperglycemia at home Vital signs notable for tachycardia. Physical exam noted above. Glucose g reater than 400 initially. Patient placed on the monitor with IV access established. Started on IV fluid resuscitation. VBG with a pH of 7.4. Initial labs showing an anion gap of 14 and ketones in the urine. Sodium of 130 but corrected was normal. Repeat BMP improving. Repeat POC glucose of 353. Patient offered admission for observation and continued IV fluid resuscitation and serial blood sugars. On reassessment patient stated she felt fine and would like to go home. Stated she want to go home go to bed and call her primary care physician first thing in the morning. Gave strict return precautions to the emergency department. Advised n.p.o. tonight and take her fasting blood sugar in the morning. Advised to call her primary care physician right after getting her fasting blood sugar to discuss ED visit and set up a follow-up as soon as possible. Since patient is not diabetic and does not use insulin, it appears that her steroid injection and metoprolol could be contributing to her high blood sugar plus eating ice cream before coming into the emergency department. Patient verbalized understanding, was grateful and agreed with plan of discharge. [] Dragon Disclaimer Dragon Disclaimer This electronic medical record was generated, in whole or in part, using a voice recognition dictation system. Departure Departure: Impression: Primary Impression: Hyperglycemia Disposition: 01 DC HOME SELF CARE/HOMELESS Condition: GOOD Referrals: MELANY TA (PCP) Patient Instructions: Hyperglycemia Additional Instructions: Please read the attached information. As discussed, please do not eat or drink anything with sugar tonight before going to bed. Please stay well-hydrated. When you wake up in the morning take a fasting blood sugar. No matter the level, please call your primary care physician to update on ED visit and blood sugar abnormalities and set up an appointment as soon as you can for follow-up. As discussed hopefully it was the steroid injections yesterday morning and your metoprolol which raised her blood pressure. However, please come back to the emergency department immediately with any new or concerning symptoms as discussed. RUSTY SOSA MD Oct 06, 2020 22:36
[2020-10-06 22:48] LABS: CALCIUM 10.6 mg/dL (8.5-10.1); CREATININE 0.9 mg/dL (0.6-1.0); POTASSIUM 3.9 mmol/L (3.5-5.1)
[2020-10-06 23:06] LABS: BASO % 1 % (0-3); EOS % 0 % (0-3); HEMATOCRIT 46.9 % (36.0-47.0); HEMOGLOBIN 15.6 g/dL (12.0-15.5); LYMPH # 1.1 x10^3/uL (1.0-4.8); LYMPH % 12 % (24-48); MEAN CORPUSCULAR HEMOGLOBIN 29 pg (25-35); MEAN CORPUSCULAR HGB CONC 33 g/dL (31-37); MEAN CORPUSCULAR VOLUME 88 fL (79-100); MONO # 0.1 x10^3/uL (0.0-1.1); MONO % 2 % (0-9); NEUT # 8.1 x10^3uL (1.8-7.7); NEUT % 86 % (31-73); PLATELET COUNT 366 x10^3/uL (140-400); RED BLOOD COUNT 5.32 x10^6/uL (3.50-5.40); RED CELL DISTRIBUTION WIDTH 12.6 % (11.5-14.5); WHITE BLOOD COUNT 9.4 x10^3/uL (4.0-11.0)
[2020-10-06 23:48] LABS: BILIRUBIN,URINE NEG (NEG); CLARITY,URINE CLEAR; COLOR,URINE YELLOW; GLUCOSE,URINE >=1000 mg/dL (NEG)
[2020-10-06 23:49] LABS: BACTERIA,URINE 0 /HPF (0-FEW); NITRITE,URINE NEG (NEG); RBC,URINE 0 /HPF (0-2); SQUAMOUS EPITHELIAL CELL,UR FEW /LPF; UROBILINOGEN,URINE 0.2 mg/dL (0.2 mg/dL); WBC,URINE 0 /HPF (0-4)
[2020-10-07] MEDS ORDERED: IV RINGERS SOLUTION,LACTATED 1,000 ML IV ONE ×2 (00:30→01:30)
[2020-10-07 01:45] LABS: CALCIUM 9.7 mg/dL (8.5-10.1); CREATININE 0.8 mg/dL (0.6-1.0); POTASSIUM 4.1 mmol/L (3.5-5.1)
[2020-10-07 02:00] VITALS: BP 123/83
== END 2020-10-07 02:11 | disposition home or self-care (01) ==
LOC: ER 21:40
DX: R73.9 Hyperglycemia, unspecified (principal); M54.5 Low back pain; I10 Essential (primary) hypertension; G89.29 Other chronic pain; Z98.890 Other specified postprocedural states
CPT/HCPCS: 36415; 80048; 81001; 81025; 82010; 82803; 82947; 85025; 96360; 96361; 99283; J7120

== ENCOUNTER → 2020-10-06 | Day surgery (SDC) | payer OTHER ==
[~2020-10-06] MED LIST changes: +0.9 % SODIUM CHLORIDE 10 ML VIAL. ONE; +DEXAMETHASONE SOD PHOS 10 MG/ML VIAL. ONE; +IOHEXOL 300 MG/ML 50 ML VIAL. ONE; +LIDOCAINE 1% PF 30 ML VIAL. ONE
[2020-10-06 11:12] VITALS: BP 138/89
== END | disposition home or self-care (01) ==
LOC: SURG 09:50
PROVIDERS: ATTEND Anesthesiology
DX: M54.16 Radiculopathy, lumbar region (principal); F11.90 Opioid use, unspecified, uncomplicated; I10 Essential (primary) hypertension; Z88.2 Allergy status to sulfonamides; Z79.899 Other long term (current) drug therapy; Z88.8 Allergy status to other drugs, medicaments and biological substances; Z88.1 Allergy status to other antibiotic agents; Z98.890 Other specified postprocedural states
CPT/HCPCS: 62323; 72275; J1100; Q9967

== ENCOUNTER 2020-10-07 16:09 | Emergency (ER) | payer OTHER ==
[~2020-10-07] VITALS: Ht 170.2 cm; Wt 95.4 kg
[2020-10-07 18:16] LABS: CALCIUM 9.1 mg/dL (8.5-10.1); CREATININE 0.8 mg/dL (0.6-1.0); POTASSIUM 3.3 mmol/L (3.5-5.1)
[2020-10-07 18:20] LABS: BASO # 0.1 x10^3/uL (0.0-0.2); BASO % 1 % (0-3); EOS # 0.1 x10^3/uL (0.0-0.7); EOS % 1 % (0-3); HEMATOCRIT 39.5 % (36.0-47.0); HEMOGLOBIN 13.1 g/dL (12.0-15.5); LYMPH # 3.5 x10^3/uL (1.0-4.8); LYMPH % 35 % (24-48); MEAN CORPUSCULAR HEMOGLOBIN 29 pg (25-35); MEAN CORPUSCULAR HGB CONC 33 g/dL (31-37); MEAN CORPUSCULAR VOLUME 88 fL (79-100); MONO # 0.5 x10^3/uL (0.0-1.1); MONO % 5 % (0-9); NEUT # 5.7 x10^3uL (1.8-7.7); NEUT % 58 % (31-73); PLATELET COUNT 277 x10^3/uL (140-400); RED CELL DISTRIBUTION WIDTH 12.5 % (11.5-14.5); WHITE BLOOD COUNT 9.9 x10^3/uL (4.0-11.0)
[2020-10-07 18:22] LABS: ALBUMIN 3.8 g/dL (3.4-5.0); TOTAL BILIRUBIN 0.6 mg/dL (0.2-1.0); TOTAL PROTEIN 7.5 g/dL (6.4-8.2)
[2020-10-07 18:26] LABS: PREG TEST PT QUAL NEGATIVE (NEG)
[2020-10-07] MEDS ORDERED: ACETAMINOPHEN 325 MG TABLET PO ONE (18:45)
--- NOTE | 2020-10-07 19:10 | PHYS DOC ---
Past History Past Medical History: Hypertension, Other Additional Past Medical Histor: back pain, fatty liver (ESPINOZA SORIA APRN) Past Surgical History: , Other Additional Past Surgical Histo: nerve burning, hip surgery (ESPINOZA SORIA APRN) Smoking: Non-smoker Alcohol Use: None Drug Use: None (ESPINOZA SORIA APRN) General Adult EDM: Chief Complaint: BLOOD SUGAR PROBLEM HPI: HPI: Patient is a 40-year-old female who presents with elevated blood sugar. Patient was sent in from her PCP. Patient was given steroids at her PCP today. Patients PCP recently diagnosed patient with type 2 diabetes. Patient is c omplaining of a headache and nausea. (ESPINOZA SORIA APRN) Review of Systems: Review of Systems: Constitutional: Denies fever or chills Eyes: Denies change in visual acuity HENT: Denies nasal congestion or sore throat Respiratory: Denies cough or shortness of breath Cardiovascular: Denies chest pain or edema GI: Denies abdominal pain, reports nausea : Denies dysuria Musculoskeletal: Denies back pain or joint pain Integument: Denies rash Neurologic: Reports headache, denies focal weakness or sensory changes Endocrine: Denies polyuria or polydipsia Lymphatic: Denies swollen glands Psychiatric: Denies depression or anxiety (ESPINOZA SORIA APRN) Current Medications: Current Meds: Current Medications Medications (Trade) Dose Ordered Sig/Woo Start Time Stop Time Status Last Admin Dose Admin Acetaminophen (Tylenol) 650 mg 1X ONCE 10/07/20 18:45 10/07/20 18:46 DC 10/07/20 18:46 650 MG (ESPINOZA SORIA APRN) Allergies: Allergies: Allergies Coded Allergies Type Severity Reaction Last Updated Verified Sulfa (Sulfonamide Antibiotics) Allergy Intermediate 10/06/20 No (ESPINOZA SORIA APRN) Physical Exam: PE: Constitutional: Well developed, well nourished, no acute distress, non-toxic appearance. [] HENT: Normocephalic, atraumatic, bilateral external ears normal, oropharynx moist, no oral exudates, nose normal. [] Eyes: PERRLA, EOMI, conjunctiva normal, no discharge. [] Neck: Normal range of motion, no tenderness, supple, no stridor. [] Cardiovascular:Heart rate regular rhythm, no murmur [] Lungs & Thorax: Bilateral breath sounds clear to auscultation [] Abdomen: Bowel sounds normal, soft, no tenderness, no masses, no pulsatile masses. [] Skin: Warm, dry, no erythema, no rash. [] Back: No tenderness, no CVA tenderness. [] Extremities: No tenderness, no cyanosis, no clubbing, ROM intact, no edema. [] Neurologic: Alert and oriented X 3, normal motor function, normal sensory function, no focal deficits noted. [] Psychologic: Affect normal, judgement normal, mood normal. [] (ESPINOZA SORIA FINE GRADE OPERATOR) Current Patient Data: Labs: Laboratory Tests Test 10/07/20 16:45 10/07/20 17:25 Glucose (Fingerstick) 291 mg/dL (70-99) H White Blood Count 9.9 x10^3/uL (4.0-11.0) Red Blood Count 4.50 x10^6/uL (3.50-5.40) Hemoglobin 13.1 g/dL (12.0-15.5) Hematocrit 39.5 % (36.0-47.0) Mean Corpuscular Volume 88 fL (79-100) Mean Corpuscular Hemoglobin 29 pg (25-35) Mean Corpuscular Hemoglobin Concent 33 g/dL (31-37) Red Cell Distribution Width 12.5 % (11.5-14.5) Platelet Count 277 x10^3/uL (140-400) Neutrophils (%) (Auto) 58 % (31-73) Lymphocytes (%) (Auto) 35 % (24-48) Monocytes (%) (Auto) 5 % (0-9) Eosinophils (%) (Auto) 1 % (0-3) Basophils (%) (Auto) 1 % (0-3) Neutrophils # (Auto) 5.7 x10^3uL (1.8-7.7) Lymphocytes # (Auto) 3.5 x10^3/uL (1.0-4.8) Monocytes # (Auto) 0.5 x10^3/uL (0.0-1.1) Eosinophils # (Auto) 0.1 x10^3/uL (0.0-0.7) Basophils # (Auto) 0.1 x10^3/uL (0.0-0.2) Sodium Level 135 mmol/L (136-145) L Potassium Level 3.3 mmol/L (3.5-5.1) L Chloride Level 100 mmol/L (98-107) Carbon Dioxide Level 18 mmol/L (21-32) L Anion Gap 17 (6-14) H Blood Urea Nitrogen 16 mg/dL (7-20) Creatinine 0.8 mg/dL (0.6-1.0) Estimated GFR (Cockcroft-Gault) 79.0 BUN/Creatinine Ratio 20 (6-20) Glucose Level 288 mg/dL (70-99) H Calcium Level 9.1 mg/dL (8.5-10.1) Total Bilirubin 0.6 mg/dL (0.2-1.0) Aspartate Amino Transferase (AST) 120 U/L (15-37) H Alanine Aminotransferase (ALT) 118 U/L (14-59) H Alkaline Phosphatase 146 U/L (46-116) H Total Protein 7.5 g/dL (6.4-8.2) Albumin 3.8 g/dL (3.4-5.0) Albumin/Globulin Ratio 1.0 (1.0-1.7) Serum Test, Qualitative Negative (NEG) Acetone Level Neg (NEG) Vital Signs: Vital Signs Date Time Temp Pulse Resp B/P (MAP) Pulse Ox O2 Delivery O2 Flow Rate FiO2 10/07/20 18:51 87 18 100 10/07/20 16:48 98.1 Room Air (ESPINOZA SORIA APRN) EKG: EKG: [] (ESPINOZA SORIA APRN) Radiology/Procedures: Radiology/Procedures: [] (ESPINOZA SORIA APRN) Heart Score: Risk Factors: Risk Factors: DM, Current or recent (<one month) smoker, HTN, HLP, family history of CAD, obesity. Risk Scores: Score 0 - 3: 2.5% MACE over next 6 weeks - Discharge Home Score 4 - 6: 20.3% MACE over next 6 weeks - Admit for Clinical Observation Score 7 - 10: 72.7% MACE over next 6 weeks - Early Invasive Strategies (ESPINOZA SORIA APRN) Course & Med Decision Making: Course & Med Decision Making Pertinent Labs and Imaging studies reviewed. (See chart for details) []Patient is a 40-year-old female who presents with elevated blood sugar. Patient was sent in from her PCP. Patients PCP recently diagnosed patient with type 2 diabetes. Patient is complaining of a headache and nausea. Blood sugar 291.Patient was given steroids at her PCP today. Creatinine within normal limits. Patient is alert oriented. Patient reports that she is producing urine like normal. Patient has a pH of 7.463. Explained to patient that she was hemodynamically stable to go home. Her vitals were all within normal limits. That she was not in DKA. That this is a new diagnosis of diabetes and that she needs to be managed by her PCP. Patient appeared to be frustrated. Explained to her that there was not anything else in the emergency room that we would be able to do to manage her diabetes. This was a something that needed to be handled by her PCP. Patient was given Tylenol for her headache. Patient ambulated on her own out of the emergency room with . (ESPINOZA SORIA APRN) Course & Med Decision Making Did not see or evaluate patient. Agree with MACHINE STRIPPER CUTTER's work-up and disposition per note. (RUSTY SOSA MD) Dragon Disclaimer: Dragjs Disclaimer: This electronic medical record was generated, in whole or in part, using a voice recognition dictation system. (ESPINOZA SORIA APRN) Departure Departure: Impression: Primary Impression: Nausea & vomiting Qualified Codes: R11.2 - Nausea with vomiting, unspecified Additional Impression: Hyperglycemia Disposition: 01 DC HOME SELF CARE/HOMELESS Condition: GOOD Referrals: SHAHID TRISTAN (PCP) Patient Instructions: Hyperglycemia, [place] Additional Instructions: You were seen in the emergency room today for headache, nausea/vomiting. Your blood sugar was 291 in the emergency room. All of your other labs were unremarkable. Please follow-up with your PCP for further management of your diabetes. Please return to the emergency room with worsening symptoms or concerns. EMERGENCY DEPARTMENT GENERAL DISCHARGE INSTRUCTIONS Thank you for coming to [facility] (ED) today and trusting us with you care. We trust that you had a positivie experience in our Emergency Department. If you wish to speak to the department management, you may call the director at [phone]. YOUR FOLLOW UP INSTRUCTIONS ARE FOLLOWS: 1. Do you have a private Doctor? If you do not have a private doctor, please ask for a resource list of physicians or clinics that may be able to assist you with follow up care. 2. The Emergency Physician has interpreted your x-rays. The X-Ray specialist will also review them. If there is a change in the findings, you will be notified in 48 hours when at all possible. 3. A lab test or culture has been done, your results will be reviewed and you will be notified if you need a change in treatment. ADDITIONAL INSTRUCTIONS AND INFORMATION: 1. Your care today has been supervised by a physician who is specially trained in emergency care. Many problems require more than one evaluation for a complete diagnosis and treatment. We recommend that you schedule your follow up appointment as recommended to ensure complete treatment of you illness or injury. If you are unable to obtain follow up care and continue to have a problem, or if your condition worsens, we recommend that you return to the ED. 2. We are not able to safely determine your condition over the phone nor are we able to give sound medical advice over the phone. For these safety reasons, if you call for medical advice we will ask you to come to the ED for further evaluation. 3. If you have any questions regarding these discharge instructions please call the ED at [phone]. SAFETY INFORMATION: In the interest of safety, wellness, and injury prevention; we encourage you to wear your sealbelt, if you smoke; quite smoking, and we encourage family to use a protective helmet for bicycling and other sporting events that present an increased risk for head injury. IF YOUR SYMPTOMS WORSEN OR NEW SYMPTOMS DEVELOP, OR YOU HAVE CONCERNS ABOUT YOUR CONDITION; OR IF YOUR CONDITION WORSENS WHILE YOU ARE WAITING FOR YOUR FOLLOW UP APPOINTMENT; EITHER CONTACT YOUR PRIMARY CARE DOCTOR, THE PHYSICIAN WHOSE NAME AND NUMBER YOU WERE GIVEN, OR RETURN TO THE ED IMMEDIATELY. ESPINOZA SORIA APRN Oct 07, 2020 19:10 RUSTY SOSA MD Oct 08, 2020 01:58
[2020-10-07 19:32] VITALS: BP 132/90
== END 2020-10-07 19:31 | disposition home or self-care (01) ==
LOC: ER 16:09
DX: R11.2 Nausea with vomiting, unspecified (principal); R73.9 Hyperglycemia, unspecified; R51.9 Headache, unspecified; I10 Essential (primary) hypertension; Z98.890 Other specified postprocedural states
CPT/HCPCS: 36415; 80053; 82010; 82803; 82947; 83930; 84703; 85025; 99283

== ENCOUNTER → 2020-11-10 | Day surgery (SDC) | payer OTHER ==
[~2020-11-10] MED LIST changes: +0.9 % SODIUM CHLORIDE 10 ML VIAL. ONE; +DEXAMETHASONE SOD PHOS 10 MG/ML VIAL. ONE; +IOHEXOL 300 MG/ML 50 ML VIAL. ONE; +LIDOCAINE 1% PF 30 ML VIAL. ONE
[2020-11-10 10:04] VITALS: BP 105/83
== END | disposition home or self-care (01) ==
LOC: SURG 09:02
PROVIDERS: ATTEND Anesthesiology
DX: M51.16 Intervertebral disc disorders with radiculopathy, lumbar region (principal); E11.9 Type 2 diabetes mellitus without complications; Z79.899 Other long term (current) drug therapy; Z79.84 Long term (current) use of oral hypoglycemic drugs; Z88.1 Allergy status to other antibiotic agents
CPT/HCPCS: 62323; J1100; Q9967